=== PATIENT | male | born 1965 | race Caucasian/White ===

== ENCOUNTER 2021-12-17 05:30 | Outpatient (RCR) | payer BC ==
[~2021-12-17] VITALS: Ht 167.6 cm; Wt 99.8 kg
[~2021-12-17 05:30] MED LIST: ATOR20TA66 PO; BUME0.5T5 PO; DAPA10TA PO; INSU100I10 SQ; INSU100I23 SQ; PREG50CA65 PO; RAMI5CAP65 PO
== END 2021-12-17 08:48 | disposition home or self-care (01) ==
LOC: PREOP 05:30
PROVIDERS: ATTEND Surgery
DX: Z01.812 Encounter for preprocedural laboratory examination (principal); Z12.11 Encounter for screening for malignant neoplasm of colon; R11.2 Nausea with vomiting, unspecified; Z20.822 Contact with and (suspected) exposure to COVID-19
CPT/HCPCS: 87635

== ENCOUNTER 2021-12-21 06:58 | Day surgery (SDC) | payer BC ==
[~2021-12-21] VITALS: Ht 167.6 cm; Wt 99.8 kg
[2021-12-21] MEDS ORDERED: LACTATED RINGERS 1,000 ML IV STA (07:03)
[2021-12-21] MEDS ORDERED: HURRICAINE EXT TUBE (BENZOCAINE) XX PRN (07:15)
[2021-12-21 07:32] VITALS: BP 136/66
[2021-12-21] MEDS ORDERED: PROPOFOL INJECTION 50 ML IV ONE (07:47)
[2021-12-21] MEDS ORDERED: MIDAZOLAM 2 MG/2 ML (VERSED) VIAL ONE (07:47)
[2021-12-21] MEDS ORDERED: PHENYLEPHRINE 100 MCG/ML 10 ML (ANESTHESIA) SYR ONE (08:58)
[2021-12-21 09:15] VITALS: BP 106/56
[2021-12-21 09:19] VITALS: BP 106/56
--- NOTE | 2021-12-21 09:19 | Progress Note-Post Operative ---
Post-Operative Progess Note Surgeon (s)/Newspaper Carrier (s) Surgeon AMANDA GANT DO Newspaper Carrier: Ana Maria Aceves, MSIII Pre-Operative Diagnosis N/V, Abd pain, Screening colon Post-Operative Diagnosis Duodenitis Gastritis Esophagitis Polyps Diverticula Int hemorrhoids Procedure & Operative Findings Date of Procedure 12/21/21 Procedure Performed/Findings EGD with bx Colon with snare PROCEDURE NOTE: After informed consent was obtained, the patient was brought to the endoscopy suite, placed in bed in left lateral decubitus position. He was administered IV sedation by the BUFFER OPERATOR who then monitored vitals the entire time, heart rate, blood pressure and pulse ox and the scope was inserted down the mouth through the esophagus into the stomach. On the way down, noted some mild esophagitis, took a picture, pushed into the stomach, pushed past the antrum into the duodenum. Duodenum showed some moderate inflammation and maybe even an ulcer; did a biopsy in here (only 1st and 2nd portion). Pulled back and did a biopsy of the antrum, then retroflexed the scope; did not see a hiatal hernia, took a picture. Then pulled the scope into the GE junction and did a biopsy here. Pushed the scope back into the stomach and suctioned all the air out of the stomach. At this point pulled the scope up the esophagus and out the mouth. Switched camera, switched gloves, went down below and started the colonoscopy. Pushed all the way in to about 150 cm to get all the way to cecum. Once here I took a picture of the appendiceal orifice and noted the ileocecal valve. I also found a polyp which I removed with snare polypectomy. I then slowly withdrew the scope, insufflating to look circumferentially at the wolfe starting in the cecum and slowly up the ascending colon to the hepatic flexure. Then down the transverse colon where I found another small polyp; which was also removed with snare polypectomy. Down to the splenic flexure and into the descending colon, where I again found another polyp and removed it with the snare. Continued down into the sigmoid and I took a picture of some diverticula and found a larger polyp. I was able to remove this with a snare also; however, it would not come through the channel and I had to suction it to the scope and completely remove the scope to get the polyp. I pushed the scope back in and then finally pulled back into the rectum. I retroflexed in the rectal vault, saw some minimal internal hemorrhoids and another small polyp; took a picture of this. Removed the polyp with another snare and finally pulled the scope completely out. The patient tolerated the procedure and he recovered in the endoscopy suite. Anesthesia Type IV sedation by BUFFER OPERATOR Estimated Blood Loss Estimated blood loss (mL): scant Specimens/Packing Specimens Removed duodenal bx antral bx GE jxn bx Cecal polyp transverse colon polyp desc colon polyp sigmoid polyp rectal polyp AMANDA GANT DO Dec 21, 2021 09:19
--- NOTE | 2021-12-21 09:21 | Endoscopy Discharge Instruct ---
Endo Procedure/Findings Findings 1.: Gastritis, Other Findings (Duodenitis and Esophagitis) 2.: Polyp 3.: Diverticulosis 4.: Internal Hemorrhoids Discharge Instructions - Activity: You might feel a little sleepy until tomorrow. This is due to the medicine you received to relax you. Until tomorrow, you should: NOT drive a car, operate machinery or power tools. NOT drink any alcoholic beverages. NOT make any important decisions or sign importortant papers. Do not return to work until tomorrow, unless otherwise instructed. Resume previous activities tomorrow. Diet: Start by taking liquids. If you tolerate liquids, advance to solid food. 1.: EGD in 1 year 2.: Colonscopy in 3 years Notify Physician - If you experience excessive bleeding, unusual abdominal pain, fever, or chest pain, contact your doctor immediately. AMANDA GANT DO Dec 21, 2021 09:21
[2021-12-21 09:44] VITALS: BP 120/68
--- NOTE | 2021-12-21 12:31 | Anesthesia-General Post-Op ---
MAC Patient Condition Mental Status/LOC: Same as Preop Cardiovascular: Satisfactory Nausea/Vomiting: Absent Respiratory: Satisfactory Pain: Controlled Complications: Absent Post Op Complications Complications None Follow Up Care/Instructions Patient Instructions None needed. Anesthesiology Discharge Order Discharge Order Patient is doing well, no complaints, stable vital signs, no apparent adverse anesthesia problems. No complications reported per nursing. FROY SWAIN CRNA Dec 21, 2021 12:31
== END 2021-12-21 09:47 | disposition home or self-care (01) ==
LOC: ENDO 06:58
PROVIDERS: ATTEND Surgery
DX: Z12.11 Encounter for screening for malignant neoplasm of colon (principal); D12.0 Benign neoplasm of cecum; D12.3 Benign neoplasm of transverse colon; D12.4 Benign neoplasm of descending colon; D12.5 Benign neoplasm of sigmoid colon; K29.80 Duodenitis without bleeding; K29.70 Gastritis, unspecified, without bleeding; K20.90 Esophagitis, unspecified without bleeding; K63.5 Polyp of colon; K57.30 Diverticulosis of large intestine without perforation or abscess without bleeding; K64.8 Other hemorrhoids; E11.40 Type 2 diabetes mellitus with diabetic neuropathy, unspecified; I11.0 Hypertensive heart disease with heart failure; E11.22 Type 2 diabetes mellitus with diabetic chronic kidney disease; I50.9 Heart failure, unspecified; N18.2 Chronic kidney disease, stage 2 (mild); Z79.4 Long term (current) use of insulin; Z79.899 Other long term (current) drug therapy
CPT/HCPCS: 82947

== ENCOUNTER 2023-02-02 16:46 | Observation (INO) | payer BC ==
[~2023-02-02] VITALS: Ht 167.7 cm; Wt 101.8 kg
[2023-02-02] MEDS ORDERED: ASPIRIN 81 MG CHEW (CHILDREN'S ASA) PO ONE (17:00)
[2023-02-02 17:08] LABS: ALBUMIN 4.3 GM/DL (3.2-4.5)
[2023-02-02 17:09] LABS: POTASSIUM 4.4 MMOL/L (3.6-5.0)
[2023-02-02 17:10] LABS: BASOPHILS # (AUTO) 0.1 10^3/uL (0.0-0.1); BASOPHILS % (AUTO) 1 % (0-10); CALCIUM 9.2 MG/DL (8.5-10.1); EOSINOPHILS # (AUTO) 0.4 10^3/uL (0.0-0.3); EOSINOPHILS % (AUTO) 5 % (0-10); HEMATOCRIT 46 % (40-54); HEMOGLOBIN 15.3 g/dL (13.3-17.7); LYMPHOCYTES # (AUTO) 2.1 10^3/uL (1.0-4.0); LYMPHOCYTES % (AUTO) 28 % (12-44); MEAN CORPUSCULAR HEMOGLOBIN 29 pg (25-34); MEAN CORPUSCULAR HGB CONC 34 g/dL (32-36); MEAN CORPUSCULAR VOLUME 86 fL (80-99); MONOCYTES # (AUTO) 0.6 10^3/uL (0.0-1.0); MONOCYTES % (AUTO) 8 % (0-12); NEUTROPHILS # (AUTO) 4.2 10^3/uL (1.8-7.8); NEUTROPHILS % (AUTO) 57 % (42-75); PLATELET COUNT 144 10^3/uL (130-400); WHITE BLOOD COUNT 7.4 10^3/uL (4.3-11.0)
[2023-02-02 17:13] LABS: BILIRUBIN,TOTAL 1.2 MG/DL (0.1-1.0)
--- NOTE | 2023-02-02 17:13 | ED Chest Pain ---
General Chief Complaint: Chest Pain Stated Complaint: CHEST PAIN Nursing Triage Note: PT AMB TO RM 4 WITH COMPLAINT OF CP, SOA, AND UPPER BACK PAIN. STATES STARTED TUESDAY. STATES HES BEEN TOLD HE HAS FLUID IN HIS LUNGS. Source: patient Exam Limitations: no limitations History of Present Illness Date Seen by Provider: Feb 02, 2023 Time Seen by Provider: 17:01 Initial Comments 58-year-old male comes in for chest pain. He has been short of breath for the last several months. He states his doctor thinks he has diastolic heart failure. He has had significant orthopnea as well as dyspnea on exertion. For last 2 or 3 days he has had a constant pressure in his left anterior chest into his epigastric region. He has had pain like this in the past, most recently a couple months ago but it seems to be a relatively new problem for him. He has no known coronary artery disease and no history of ACS. No history of pulmonary pathology. He is diabetic and has high blood pressure and high cholesterol. He states his father had significant heart problems at a young age. He denies any fevers chills. He has had a nonproductive cough. All other systems reviewed and negative except documented per HPI. Voice recognition software was used to help create this chart Allergies and Home Medications Allergies Coded Allergies: No Known Drug Allergies (Unverified , 12/14/21) Patient Home Medication List Home Medication List Reviewed: Yes Atorvastatin Calcium (Atorvastatin Calcium) 20 Mg Tablet, 20 MG PO HS, (Reported) Entered as Reported by: ESTHER MAK on 12/14/211412 Last Action: Reviewed Bumetanide (Bumetanide) 0.5 Mg Tablet, 0.5 MG PO HS, (Reported) Entered as Reported by: ESTHER MAK on 12/14/211412 Last Action: Reviewed Dapagliflozin Propanediol (Farxiga) 10 Mg Tablet, 10 MG PO DAILY, (Reported) Entered as Reported by: ESTHER MAK on 12/14/211412 Last Action: Reviewed Insulin Glargine,Hum.rec.anlog (Lantus Solostar) 100 Unit/1 Ml Insuln.pen, 30 UNIT SQ DAILY, (Reported) Entered as Reported by: ESTHER MAK on 12/14/211412 Last Action: Reviewed Pregabalin (Pregabalin) 50 Mg Capsule, 50 MG PO BID, (Reported) Entered as Reported by: ESTHER MAK on 12/14/211412 Last Action: Reviewed Ramipril (Ramipril) 5 Mg Capsule, 5 MG PO DAILY, (Reported) Entered as Reported by: ESTHER MAK on 12/14/211412 Last Action: Reviewed Discontinued Medications Insulin Lispro (Humalog Kwikpen) 100 Unit/1 Ml Insuln.pen, 8 UNIT SQ TID, (Reported) Discontinued Reason: No Longer Taking Entered as Reported by: ESTHER MAK on 12/14/211412 Last Action: Discontinued Review of Systems Review of Systems Constitutional: see HPI Past Hwhxrvu-Kbeutv-Zkcvtx Hx Patient Social History Tobacco Use?: No Use of E-Cig and/or Vaping dev: No Substance use?: No Alcohol Use?: No Pt feels they are or have been: No Immunizations Up To Date First/Initial COVID19 Vaccinat: 01/10/2021 Second COVID19 Vaccination Rosas: 02/10/2021 Third COVID19 Vaccination Date: 09/20/2021 Seasonal Allergies Seasonal Allergies: No Past Medical History Surgeries: Yes (CYST REMOVED) Respiratory: No Cardiac: Yes (CHF) High Cholesterol Neurological: No Genitourinary: Yes (STAGE III KIDNEY DISEASE) Gastrointestinal: No (HEPATITIS A, N&V) Hepatitis Musculoskeletal: No Endocrine: Yes Diabetes, Insulin dep HEENT: No Cancer: No Psychosocial: No Integumentary: No Blood Disorders: No Family Medical History Reviewed Nursing Family Hx CAD Under 55 Years Old Physical Exam Vital Signs Vital Signs - First Documented 02/02/23 02/02/23 16:46 16:48 Temp 36.2 Pulse 67 Resp 17 B/P (MAP) 187/92 (123) Pulse Ox 94 O2 Delivery Room Air Capillary Refill : Less Than 3 Seconds Height, Weight, BMI Height: '" Weight: lbs. oz. kg; 36.00 BMI Method: General Appearance: No Apparent Distress, WD/WN HEENT: Normal ENT Inspection, Pharynx Normal Neck: Full Range of Motion, Normal Inspection, Non Tender, Supple Respiratory: Chest Non Tender, Lungs Clear, Normal Breath Sounds, No Accessory Muscle Use, No Respiratory Distress Cardiovascular: Regular Rate, Rhythm, No Murmur Gastrointestinal: Normal Bowel Sounds, Non Tender, Soft Neurologic/Psychiatric: Alert, Oriented x3 Skin: Normal Color, Warm/Dry Progress/Results/Core Measures Results/Orders Lab Results Laboratory Tests Test 02/02/23 17:01 Range/Units White Blood Count 7.4 4.3-11.0 10^3/uL Red Blood Count 5.28 4.30-5.52 10^6/uL Hemoglobin 15.3 13.3-17.7 g/dL Hematocrit 46 40-54 % Mean Corpuscular Volume 86 80-99 fL Mean Corpuscular Hemoglobin 29 25-34 pg Mean Corpuscular Hemoglobin Concent 34 32-36 g/dL Red Cell Distribution Width 12.9 10.0-14.5 % Platelet Count 144 130-400 10^3/uL Mean Platelet Volume 13.0 H 9.0-12.2 fL Immature Granulocyte % (Auto) 0 % Neutrophils (%) (Auto) 57 42-75 % Lymphocytes (%) (Auto) 28 12-44 % Monocytes (%) (Auto) 8 0-12 % Eosinophils (%) (Auto) 5 0-10 % Basophils (%) (Auto) 1 0-10 % Neutrophils # (Auto) 4.2 1.8-7.8 10^3/uL Lymphocytes # (Auto) 2.1 1.0-4.0 10^3/uL Monocytes # (Auto) 0.6 0.0-1.0 10^3/uL Eosinophils # (Auto) 0.4 H 0.0-0.3 10^3/uL Basophils # (Auto) 0.1 0.0-0.1 10^3/uL Immature Granulocyte # (Auto) 0.0 0.0-0.1 10^3/uL Sodium Level 138 135-145 MMOL/L Potassium Level 4.4 3.6-5.0 MMOL/L Chloride Level 101 98-107 MMOL/L Carbon Dioxide Level 27 21-32 MMOL/L Anion Gap 10 5-14 MMOL/L Blood Urea Nitrogen 39 H 7-18 MG/DL Creatinine 2.71 H 0.60-1.30 MG/DL Estimat Glomerular Filtration Rate 26 BUN/Creatinine Ratio 14 Glucose Level 394 H 70-105 MG/DL Calcium Level 9.2 8.5-10.1 MG/DL Corrected Calcium 9.0 8.5-10.1 MG/DL Total Bilirubin 1.2 H 0.1-1.0 MG/DL Aspartate Amino Transf (AST/SGOT) 15 5-34 U/L Alanine Aminotransferase (ALT/SGPT) 17 0-55 U/L Alkaline Phosphatase 157 H 40-136 U/L Troponin I < 0.028 <0.028 NG/ML Total Protein 7.5 6.4-8.2 GM/DL Albumin 4.3 3.2-4.5 GM/DL My Orders Orders - SIDDHARTHA PEARCE DO Ekg Tracing (02/02/23 16:54) Cbc With Automated Diff (02/02/23 16:59) Chest 1 View, Ap/Pa Only (02/02/23 16:59) Comprehensive Metabolic Panel (02/02/23 16:59) O2 (02/02/23 16:59) Monitor-Rhythm Ecg Trace Only (02/02/23 16:59) Ed Iv/Invasive Line Start (02/02/23 16:59) Troponin I Rich (02/02/23 16:59) Aspirin Chewable Tablet (Baby Aspirin Ch (02/02/23 17:00) Covid 19 Inhouse Test (02/02/23 17:13) Influenza A And B By Pcr (02/02/23 17:13) Ed Admission (Communication) (02/02/23 17:41) Medications Given in ED Current Medications Medications Dose Ordered Sig/Sammie Route Start Time Stop Time Status Last Admin Dose Admin Aspirin 324 mg ONCE ONCE PO 02/02/23 17:00 02/02/23 17:01 DC 02/02/23 17:21 324 MG Vital Signs/I&O 02/02/23 02/02/23 16:46 16:48 Temp 36.2 Pulse 67 Resp 17 B/P (MAP) 187/92 (123) Pulse Ox 94 O2 Delivery Room Air Room Air Blood Pressure Mean: 123 Comment EKG shows sinus rhythm with a rate of 55 bpm. Normal axis. Prolonged QRS but normal QTc otherwise normal intervals. No ectopy. No ST or T wave abnormalities. Departure Communication (Admissions) Patient is hemodynamically stable and moderately hypertensive. This improves with rest alone. Symptoms are concerning for possible angina. No evidence for ACS given negative troponin and nonischemic EKG. Chest x-ray is negative for any acute pulmonary pathology. PE remains in the differential diagnosis however I think it is low risk at this time. His creatinine is significantly elevated given his CKD 3 with a GFR of 26 I do not think that we should give him IV contrast dye at this time. I spoke with Dr. Chau at 1740 and she accepts admission. She request a call Dr. Tong. I called and left a voicemail, awaiting callback at this time. Patient is comfortable for cardiac rule out admission. His heart score is 4-5 1750: Spoke to Dr Willson. Recommends DVT prophylaxis, toprol 25mg PO daily . I have written bridging orders. Impression Primary Impression: Chest pain Qualified Codes: R07.9 - Chest pain, unspecified Disposition: ADMITTED INPATIENT Condition: Stable Admissions Decision to Admit Reason: Admit from ER (General) Departure-Patient Inst. Referrals: ANTON TALLEY MD (PCP) Primary Care Physician SIDDHARTHA PEARCE DO Feb 02, 2023 17:13
[2023-02-02 17:14] LABS: CREATININE SERUM 2.71 MG/DL (0.60-1.30)
--- NOTE | 2023-02-02 17:21 | Diagnostic Imaging Report ---
INDICATION: Chest pain. EXAMINATION: Portable chest, 5:00 p.m. FINDINGS: Heart size is normal. There is a suboptimal inspiration. There are no infiltrates, effusions, or pneumothoraces. IMPRESSION: Suboptimal inspiration. No acute abnormality seen. Dictated by: Dictated on workstation # [id number]
[2023-02-02 17:35] LABS: TOTAL PROTEIN 7.5 GM/DL (6.4-8.2)
[2023-02-02] MEDS ORDERED: PATIENT MAY USE OWN MEDS, ALL PO SCH (19:30)
[2023-02-02] MEDS ORDERED: ONDANSETRON 4 MG/2 ML (SDV) Z0FRAN IVP PRN (19:30)
[2023-02-02] MEDS ORDERED: morphine INJ 4 MG/ML 1 ML (VIAL/SYRINGE) IV PRN (19:30)
[2023-02-02] MEDS ORDERED: NITROGLYCERIN 0.4 MG SL TABS BTL 25'S SL PRN (19:30)
[2023-02-02 20:00] VITALS: BP 150/75
[2023-02-02] MEDS: inSUlin ASPART (NovoLOG) 1 UNIT/0.01 ML (CHARGE PER UNIT) SC SCH (23:10)
[2023-02-02] MEDS: PREGABALIN 50 MG (LYRICA) CAP PO SCH (23:22)
[2023-02-03] VITALS (7 sets, daily range): BP systolic 123–163; BP diastolic 58–92
[2023-02-03 05:16] LABS: HEMATOCRIT 39 % (40-54); HEMOGLOBIN 12.9 g/dL (13.3-17.7); MEAN CORPUSCULAR HEMOGLOBIN 29 pg (25-34); MEAN CORPUSCULAR HGB CONC 33 g/dL (32-36); MEAN CORPUSCULAR VOLUME 85 fL (80-99); PLATELET COUNT 130 10^3/uL (130-400); WHITE BLOOD COUNT 7.9 10^3/uL (4.3-11.0)
[2023-02-03 05:26] LABS: CHLORIDE 107 MMOL/L (98-107); POTASSIUM 4.2 MMOL/L (3.6-5.0)
[2023-02-03 05:27] LABS: SODIUM 140 MMOL/L (135-145)
[2023-02-03 05:28] LABS: CALCIUM 8.3 MG/DL (8.5-10.1); GLUCOSE 143 MG/DL (70-105)
[2023-02-03 05:30] LABS: CARBON DIOXIDE 23 MMOL/L (21-32)
[2023-02-03 05:32] LABS: CREATININE SERUM 2.44 MG/DL (0.60-1.30); GFR ESTIMATED 30
[2023-02-03 05:33] LABS: BUN/CREATININE RATIO 15
[2023-02-03] MEDS: inSUlin ASPART (NovoLOG) 1 UNIT/0.01 ML (CHARGE PER UNIT) SC SCH ×4 (05:43→21:27)
--- NOTE | 2023-02-03 08:03 | Consultation-Cardiology ---
HPI-Cardiology Cardiology Consultation: Date of Consultation 02/03/23 Time Seen by a Provider: 08:20 Date of Admission 02-02-23 Attending Physician Carlos Otto MD Admitting Physician Admitting Physician: Emely Galvez MD Attending Physician: Emely Galvez MD Consulting Physician Shante Willson MD HPI: Chief Complaint: Chest pain Mr. Moncada is a 58 yr old male admitted to 511 from the ED with c/o CP. He reports he developed chest tightness aprox 3 days ago which he reports was constant, radiating into his left shoulder blade. He reports nothing made it better or worse. He reports he had some mild facial numbness when the chest tightness started that lasted for a hours and resolved on its own. He denies any vision changes or difficulty with speech or swallowing. No report of any weakness in his extremities. He reports he did have a slight GERARD at the time. He reports the chest tightness began to ease up by the end of day 2, but on day 3 the chest tightness returned and has lasted since then. He reports nothing makes it better or worse. He does report it is less intense than yesterday. He reports chronic YEE which he feels may be somewhat worse. He denies any fever or chills. He reports intermittent LE swelling and abd swelling for which his PCP started him on Lasix which does help. He reports he has a chronic dry cough which has been present for years. He reports his PCP is Dr. Carlos Otto. Review of Systems-Cardiology Review of Systems Constitutional: No chills, No fever, No malaise Eyes: No vision change Ears/Nose/Throat: No epistaxis, No recent hearing loss Respiratory: As described under HPI Cardiovascular: As described under HPI Gastrointestinal: No constipation, No diarrhea; nausea; No vomiting Genitourinary: No dysuria, No hematuria Musculoskeletal: no symptoms reported Skin: No rash on exposed areas, No ulcerations on exposed areas Psychiatric/Neurological: No anxiety, No depression, No seizure, No focal weakness, No syncope Hematologic: No bleeding abnormalities MCZ-Yxqozg-Kxbkra Hx Patient Social History Smoking Status: Never a Smoker 2nd Hand Smoke Exposure: No Have you traveled recently?: No Alcohol Use?: No Substance type: Caffeine Pt feels they are or have been: No Past Medical History PMH As described under Assessment. Family Medical History Family Medical History: He reports his Father had CAD. He reports his mother had CAD. Allergies and Home Medications Allergies Coded Allergies: No Known Drug Allergies (Unverified , 12/14/21) Patient Home Medication List Atorvastatin Calcium (Atorvastatin Calcium) 20 Mg Tablet, 20 MG PO HS, (Reported) Entered as Reported by: ESTHER MAK on 12/14/211412 Last Action: Reviewed Bumetanide (Bumetanide) 0.5 Mg Tablet, 0.5 MG PO HS, (Reported) Entered as Reported by: ESTHER MAK on 12/14/211412 Last Action: Reviewed Dapagliflozin Propanediol (Farxiga) 10 Mg Tablet, 10 MG PO DAILY, (Reported) Entered as Reported by: ESTHER MAK on 12/14/211412 Last Action: Reviewed Insulin Glargine,Hum.rec.anlog (Lantus Solostar) 100 Unit/1 Ml Insuln.pen, 30 UNIT SQ DAILY, (Reported) Entered as Reported by: ESTHER MAK on 12/14/211412 Last Action: Reviewed Pregabalin (Pregabalin) 50 Mg Capsule, 50 MG PO BID, (Reported) Entered as Reported by: ESTHER MAK on 12/14/211412 Last Action: Reviewed Discontinued Medications Insulin Lispro (Humalog Kwikpen) 100 Unit/1 Ml Insuln.pen, 8 UNIT SQ TID, (Reported) Discontinued Reason: No Longer Taking Entered as Reported by: ESTHER MAK on 12/14/211412 Last Action: Discontinued Ramipril (Ramipril) 5 Mg Capsule, 5 MG PO DAILY, (Reported) Entered as Reported by: ESTHER MAK on 12/14/211412 Last Action: Reviewed Physical Exam-Cardiology Physical Exam Vital Signs/I&O Capillary Refill : Less Than 3 Seconds Constitutional: AAO x 3, well-developed, well-nourished HEENT: PERRL, hearing is well preserved, oral hygience is good Neck: No carotid bruit; carotid pulses are 2 + bilaterally Respiratory: No accessory muscle use, No respiratory distress; chest expansion is symmetric, chest is bilaterally symmetric, lungs clear to auscultation Cardiovascular: regular rate-rhythm; No JVD; S1 and S2 Gastrointestinal: No tender; soft, round, audible bowel sounds Extremities: other (mild bilat LE swelling) Neurologic/Psychiatric: grossly intact (moves all extremities) Skin: No rash on exposed areas, No ulcerations on exposed areas Data Review Labs Radiology NAME: MATHEW MONCADA JR [facility] REC#: [id number] PT STATUS: REG ER : 1965 PHYSICIAN: SIDDHARTHA PEARCE DO ADMIT DATE: 02/02/23/ER Signed Date of Exam:02/02/23 CHEST 1 VIEW, AP/PA ONLY INDICATION: Chest pain. EXAMINATION: Portable chest, 5:00 p.m. FINDINGS: Heart size is normal. There is a suboptimal inspiration. There are no infiltrates, effusions, or pneumothoraces. IMPRESSION: Suboptimal inspiration. No acute abnormality seen. 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 Galvez regarding plan of care Clinical Quality Measures AMI/AHF: ASA po Prior to arrival: ALLISON Trimble Feb 03, 2023 08:03
--- NOTE | 2023-02-03 08:40 | History & Physical-Hospitalist ---
History of Present Illness HPI/Chief Complaint Patient is a 58-year-old with past medical history of insulin- dependent diabetes chronic kidney disease hypertension and hyperlipidemia who presented to the emergency department due to chest pain. He states his chest pain has been going on for couple days and has been exertional in nature. He then developed a tightness in his shoulder prompting him to seek evaluation in the ER. He does state this is happened in the past and he has had a negative work-up though he is unable to tell me where or when and states he has a bad memory. He did have an echo done and reports this was done at a clinic . I did confirm with his primary care physician that this was done at a facility called [facility] that primarily does ultrasounds but will do echoes if needed. His primary care physician informing his EF was 75% at that time and he had no diastolic dysfunction. Despite this he has had lower extremity edema going on for the past couple of years. He has been quite noncompliant with his medications over the past couple of months because he states his mom had a heart attack and he has been away taking care of her. He has not taken his insulin at all for the past month. On arrival his troponin was negative but his blood sugar was found to be 394. He was admitted for chest pain rule out given his significant risk factors. He denies any chest pain this morning. Source: patient Date Seen 02/03/23 Time Seen by a Provider: 08:30 Attending Physician Carlos Otto MD PCP Admitting Physician: Namrata Galvez MD Attending Physician: Namrata Galvez MD Referring Physician Date of Admission Feb 02, 2023 at 18:31 Home Medications & Allergies Home Medications Reviewed patient Home Medication Reconciliation performed by pharmacy medication reconciliations extracorporeal technician and/or nursing. Patients Allergies have been reviewed. Allergies Allergies Coded Allergies No Known Drug Allergies (Unverified12/14/21) Past Vydwlrs-Vmxgvs-Gdposo Hx Patient Social History Tobacco Use?: No Smoking Status: Never a Smoker Smokeless Tobacco Frequency: Never a User Use of E-Cig and/or Vaping dev: No Substance use?: No Substance type: Caffeine Substance frequency: Couple times a week Alcohol Use?: No Pt feels they are or have been: No Immunizations Up To Date First/Initial COVID19 Vaccinat: 01/10/2021 Second COVID19 Vaccination Rosas: 02/10/2021 Seasonal Allergies Seasonal Allergies: No Current Status Advance Directives: No Communicates: Verbally Primary Language: Argentine Preferred Spoken Language: Argentine Is interpretation needed?: No Implanted or Applied Medical D: None Past Medical History High Cholesterol Renal Failure Hepatitis Diabetes, Insulin dep Blood Disorders: No Family Medical History Heart Disease, CAD Over 55 Years Old Review of Systems Constitutional: see HPI Physical Exam Physical Exam Vital Signs Vital Signs - First Documented 02/02/23 02/02/23 16:46 16:48 Temp 36.2 Pulse 67 Resp 17 B/P (MAP) 187/92 (123) Pulse Ox 94 O2 Delivery Room Air Capillary Refill : Less Than 3 Seconds Height, Weight, BMI Height: '" Weight: lbs. oz. kg; 35.45 BMI Method: General Appearance: No Apparent Distress, WD/WN, Obese Respiratory: Lungs Clear, No Respiratory Distress Cardiovascular: No Murmur, Bradycardia Gastrointestinal: Normal Bowel Sounds, Non Tender, Soft Neurologic/Psychiatric: Alert, Oriented x3, Normal Mood/Affect Results Results/Procedures Labs Laboratory Tests 02/02/23 17:01 02/03/23 04:52 Patient resulted labs reviewed. Imaging: Reviewed Imaging Report Imaging [facility] [place] NAME: MATHEW POLANCO [facility] REC#: [id number] PT STATUS: REG ER : 1965 PHYSICIAN: SIDDHARTHA PEARCE DO ADMIT DATE: 02/02/23/ER Signed Date of Exam:02/02/23 CHEST 1 VIEW, AP/PA ONLY INDICATION: Chest pain. EXAMINATION: Portable chest, 5:00 p.m. FINDINGS: Heart size is normal. There is a suboptimal inspiration. There are no infiltrates, effusions, or pneumothoraces. IMPRESSION: Suboptimal inspiration. No acute abnormality seen. Dictated by: Dictated on workstation # [id number] Dict: 02/02/231718 Trans: 02/02/231738 [id number] Interpreted by: PILAR NAIDU MD Electronically signed by: PILAR NAIDU MD 02/02/239 Assessment/Plan Admission Diagnosis chest pain Admission Status: Observation Assessment and Plan Chest pain Multiple high risk factors involved (poorly controlled DM, family history, HLD, HTN) Cardiology consulted, appreciate recs Stress test today Echo ordered Trop neg x3 Telemetry ASA IDDMII Diabetic nephropathy- CKD stage 4 Diabetic neuropathy BS improved with insulin overnight Creatinine nearing baseline (2.1 at PCP's office) Trend Social work consulted, appreciate recs HTN HLD COntinue home meds Clinical Quality Measures AMI/AHF: ASA po Prior to arrival: No NAMRATA GALVEZ MD Feb 03, 2023 08:40
[2023-02-03] MEDS ORDERED: CATHETER FLUSH 10 ML SYR IVP PRN (11:15)
[2023-02-03] MEDS ORDERED: REGADENOSON 0.4 MG/5 ML SYR (LEXISCAN) IV ONE ×2 (12:33→12:45)
[2023-02-03] MEDS: PREGABALIN 50 MG (LYRICA) CAP PO SCH ×2 (15:03→21:27)
--- NOTE | 2023-02-03 16:25 | Diagnostic Imaging Report ---
PROCEDURE: US carotid duplex, bilateral. TECHNIQUE: Multiple real-time grayscale images were obtained over the carotid arteries in various projections, bilaterally. Additional spectral analysis and color Doppler duplex images were also obtained. INDICATION: Facial numbness. COMPARISON: None. FINDINGS: The bilateral common carotid arteries are mildly tortuous, but are otherwise normal in course and caliber. There is mild tortuosity to the left internal carotid artery as well. Minimal atherosclerotic disease of the carotid bulbs is present, but by NASCET criteria, there is no focal significant stenosis. Vertebral arteries show normal antegrade flow. IMPRESSION: 1. Minimal atherosclerotic disease. No focal significant stenosis. Parameters based on the consensus panel Marquez-Scale and Doppler ultrasound criteria published August 2003, Radiology, Volume 229. DOPPLER (peak systolic velocity M/S Right Left CCA 1..1 1.5 ICA Proximal 1.2 1.3 ICA Mid 1.2 1.3 ICA Distal 1.0 .82 RATIO 1.2 .91 ECA 1.7 .91 VERT .67 .98 Dictated by: Dictated on workstation # [id number]
--- NOTE | 2023-02-03 18:04 | STRESS TEST ---
DATE OF SERVICE: 02/03/2023 RESTING AND POST REGADENOSON TECHNETIUM-99M TETROFOSMIN SPECT CT IMAGING ORDERING PHYSICIAN: Shania Brito APRN PRIMARY PHYSICIAN: Dr. Otto. ATTENDING PHYSICIAN: Dr. Galvez. OTHER PHYSICIAN: Dr. Willson. CLINICAL DIAGNOSIS: Chest discomfort. Baseline images were carried out after injection of 10.87 mCi of technetium-99m tetrofosmin. This was followed by 0.4 mg regadenoson and 32.8 mCi of technetium-99m tetrofosmin for stress imaging. The electrocardiogram showed sinus rhythm with right bundle branch block. The electrocardiogram did not change significantly with the regadenoson infusion. The patient noted mild shortness of breath following regadenoson infusion, which resolved in a few minutes. Review of images at rest and following stress does not indicate any significant myocardial ischemia. There appears to be some degree of apical thinning both at rest and following regadenoson infusion. Gated images show normal global left ventricular systolic function with normal regional wall motion, including the left ventricular apex. The summed stress score is 3. The summed rest score is 2. The summed difference score is 1. This indicates that this is a low risk study. CONCLUSIONS: 1. Low-risk study, which he does not exhibit distinct evidence of myocardial ischemia or infarction. 2. Normal global left ventricular systolic function with a calculated ejection fraction of 69%. 3. Normal regional wall motion. Job ID: [id number] DocumentID: [id number] Dictated Date: 02/03/2023 17:29:36 Satellite Tv Installer Date: 02/03/2023 18:01:00 Dictated By: DALLAS WILLSON MD; OLIVER; FACP; FACC;
--- NOTE | 2023-02-03 18:32 | Consultation-Cardiology ---
HPI-Cardiology Cardiology Consultation: Date of Consultation 02/03/23 Time Seen by a Provider: 09:30 Date of Admission Attending Physician Carlos Otto MD Admitting Physician Admitting Physician: Emely Galvez MD Attending Physician: Emely Galvez MD Consulting Physician DALLAS GORE MD, MA, FACP, FACC, [facility] [place], CCDS Physician requesting consult: Dr Galvez Pt seen at 0930 and 1700 HPI: Chief Complaint: Chest pain Mr. Moncada is a 58 yr old male admitted to [facility] from the ED with c/o CP. He reports he developed chest tightness aprox 3 days ago which he reports was constant, radiating into his left shoulder blade. He reports nothing made it better or worse. He reports he had some mild facial numbness when the chest tightness started that lasted for a hours and resolved on its own. He denies any vision changes or difficulty with speech or swallowing. No report of any weakness in his extremities. He reports he did have a slight GERARD at the time. He reports the chest tightness began to ease up by the end of day 2, but on day 3 the chest tightness returned and has lasted since then. He reports nothing makes it better or worse. He does report it is less intense than yesterday. He reports chronic YEE which he feels may be somewhat worse. He denies any fever or chills. He reports intermittent LE swelling and abd swelling for which his PCP started him on Lasix which does help. He reports he has a chronic dry cough which has been present for years. He reports his PCP is Dr. Carlos Otto. Review of Systems-Cardiology Review of Systems Constitutional: No chills, No fever, No malaise Eyes: No vision change Ears/Nose/Throat: No epistaxis, No recent hearing loss Respiratory: As described under HPI Cardiovascular: As described under HPI Gastrointestinal: No constipation, No diarrhea; nausea; No vomiting Genitourinary: No dysuria, No hematuria Musculoskeletal: no symptoms reported Skin: No rash on exposed areas, No ulcerations on exposed areas Psychiatric/Neurological: No anxiety, No depression, No seizure, No focal weakness, No syncope Hematologic: No bleeding abnormalities JNF-[id number]-Kbtinl Hx Patient Social History Smoking Status: Never a Smoker 2nd Hand Smoke Exposure: No Have you traveled recently?: No Alcohol Use?: No Substance type: Caffeine Pt feels they are or have been: No Past Medical History PMH As described under Assessment. Family Medical History Family Medical History: He reports his Father had CAD. He reports his mother had CAD. Allergies and Home Medications Allergies Coded Allergies: No Known Drug Allergies (Unverified , 12/14/21) Patient Home Medication List Home Medication List Reviewed: Yes Atorvastatin Calcium (Atorvastatin Calcium) 20 Mg Tablet, 20 MG PO HS, (Reported) Entered as Reported by: ESTHER MAK on 12/14/211412 Last Action: Reviewed Bumetanide (Bumetanide) 0.5 Mg Tablet, 0.5 MG PO HS, (Reported) Entered as Reported by: ESTHER MAK on 12/14/211412 Last Action: Reviewed Dapagliflozin Propanediol (Farxiga) 10 Mg Tablet, 10 MG PO DAILY, (Reported) Entered as Reported by: ESTHER MAK on 12/14/211412 Last Action: Reviewed Insulin Glargine,Hum.rec.anlog (Lantus Solostar) 100 Unit/1 Ml Insuln.pen, 30 UNIT SQ DAILY, (Reported) Entered as Reported by: ESTHER MAK on 12/14/211412 Last Action: Reviewed Pregabalin (Pregabalin) 50 Mg Capsule, 50 MG PO BID, (Reported) Entered as Reported by: ESTHER MAK on 12/14/211412 Last Action: Reviewed Ramipril (Ramipril) 5 Mg Capsule, 5 MG PO DAILY, (Reported) Entered as Reported by: ESTHER MAK on 12/14/211412 Last Action: Reviewed Discontinued Medications Insulin Lispro (Humalog Kwikpen) 100 Unit/1 Ml Insuln.pen, 8 UNIT SQ TID, (Reported) Discontinued Reason: No Longer Taking Entered as Reported by: ESTHER MAK on 12/14/211412 Last Action: Discontinued Physical Exam-Cardiology Physical Exam Vital Signs/I&O 02/03/23 02/03/23 02/03/23 02/03/23 07:00 08:00 08:00 12:00 Temp 36.7 36.8 Pulse 56 61 61 Resp 26 28 B/P (MAP) 128/58 (81) 130/65 (86) Pulse Ox 96 98 96 O2 Delivery Room Air Nasal Cannula Room Air 02/03/23 02/03/23 02/03/23 12:36 15:18 17:00 Temp 36.5 Pulse 62 58 64 Resp 20 B/P (MAP) 163/92 (115) 159/73 (101) Pulse Ox 94 95 O2 Delivery Room Air 02/03/23 00:00 Intake Total 960 ml Balance 960 ml Capillary Refill : Less Than 3 Seconds Constitutional: AAO x 3, well-developed, well-nourished HEENT: PERRL, hearing is well preserved, oral hygience is good Neck: No carotid bruit; carotid pulses are 2 + bilaterally Respiratory: No accessory muscle use, No respiratory distress; chest expansion is symmetric, chest is bilaterally symmetric, lungs clear to auscultation Cardiovascular: regular rate-rhythm; No JVD; S1 and S2 Gastrointestinal: No tender; soft, round, audible bowel sounds Extremities: other (mild bilat LE swelling) Neurologic/Psychiatric: grossly intact (moves all extremities) Skin: No rash on exposed areas, No ulcerations on exposed areas Data Review Labs Laboratory Tests 02/02/23 21:38: Glucometer 237H 02/02/23 23:00: Troponin I < 0.028 02/03/23 04:52: Troponin I < 0.028, White Blood Count 7.9, Red Blood Count 4.52, Hemoglobin 12.9L, Hematocrit 39L, Mean Corpuscular Volume 85, Mean Corpuscular Hemoglobin 29, Mean Corpuscular Hemoglobin Concent 33, Red Cell Distribution Width 13.0, Platelet Count 130, Mean Platelet Volume 13.0H, Sodium Level 140, Potassium Level 4.2, Chloride Level 107, Carbon Dioxide Level 23, Anion Gap 10, Blood Urea Nitrogen 36H, Creatinine 2.44H, Estimat Glomerular Filtration Rate 30, BUN/Creatinine Ratio 15, Glucose Level 143H, Calcium Level 8.3L 02/03/23 10:31: Glucometer 163H 02/03/23 17:00: Glucometer 138H A/P-Cardiology Assessment/Admission Diagnosis Chest pain of undetermined etiology - no evidence of ACS - MPI of 02/03/23 w/o evidence of significant ischemia/infarction. SSS 3, SRS 2, SDS 1 (low risk MPI) YEE - undetermined etiology - Echo on 02/03/23: mild concentric LVH, LVEF 55-60% Episode of transient facial numbness - carotid u/s on 02/03/23:Minimal atherosclerotic disease. 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
[2023-02-04] VITALS: BP 136/68
[2023-02-04 04:00] VITALS: BP 153/73
[2023-02-04 04:51] LABS: HEMOGLOBIN 13.3 g/dL (13.3-17.7); MEAN PLATELET VOLUME 13.1 fL (9.0-12.2); WHITE BLOOD COUNT 7.2 10^3/uL (4.3-11.0)
[2023-02-04 05:11] LABS: CALCIUM 8.4 MG/DL (8.5-10.1); CREATININE SERUM 2.37 MG/DL (0.60-1.30); POTASSIUM 4.3 MMOL/L (3.6-5.0)
[2023-02-04] MEDS: inSUlin ASPART (NovoLOG) 1 UNIT/0.01 ML (CHARGE PER UNIT) SC SCH ×2 (06:06→11:23)
[2023-02-04 08:00] VITALS: BP 137/66
[2023-02-04] MEDS: PREGABALIN 50 MG (LYRICA) CAP PO SCH (08:14)
--- NOTE | 2023-02-04 09:28 | Discharge Summary ---
Diagnosis/Chief Complaint Date of Admission Feb 02, 2023 at 18:31 Date of Discharge Discharge Date: Feb 04, 2023 Admission Diagnosis chest pain Primary Care Carlos Otto MD Discharge Summary Discharge Physical Exam Allergies: Coded Allergies: No Known Drug Allergies (Unverified , 12/14/21) Vitals & I&Os Vital Signs Date Time Temp Pulse Resp B/P (MAP) Pulse Ox O2 Delivery O2 Flow Rate FiO2 02/04/23 11:39 36.3 63 16 152/66 (94) 95 Room Air General Appearance: No Apparent Distress, Chronically ill, Obese Cardiovascular: Regular Rate, Rhythm, No Murmur Gastrointestinal: Normal Bowel Sounds, Soft Neurologic/Psychiatric: Alert, Oriented x3 Hospital Course Patient was admitted to the hospital secondary to chest pain. He had serial negative troponins but a significant medical history and family history for coronary artery disease underwent stress test. His stress test was low risk and read as negative. He also had an echo done which showed preserved ejection fraction and no diastolic dysfunction. he was discharged home in stable and improved condition to follow-up with his primary care physician. I did call and speak to Dr. Carlos Otto regarding this. Labs (last 24 hrs) Patient resulted labs reviewed. Pending Labs Imaging: Reviewed Imaging Report Discussion & Recommendations Discharge Planning: >30 minutes discharge planning Discharge Home Medications: Active Scripts Active Reported Pregabalin 50 Mg Capsule 50 Mg PO BID Lantus Solostar (Insulin Glargine,Hum.rec.anlog) 100 Unit/1 Ml Insuln.pen 30 Unit SQ DAILY Farxiga (Dapagliflozin Propanediol) 10 Mg Tablet 10 Mg PO DAILY Bumetanide 0.5 Mg Tablet 0.5 Mg PO HS Atorvastatin Calcium 20 Mg Tablet 20 Mg PO HS Instructions to patient/family Please see electronic discharge instructions given to patient. Clinical Quality Measures AMI/AHF: ASA po Prior to arrival: NAMRATA Pryor MD Feb 04, 2023 09:28
--- NOTE | 2023-02-04 09:29 | Discharge Inst-Simple/Standard ---
Discharge Inst-Standard Patient Instructions/Follow Up Plan of Care/Instructions/FU: Please continue to take your medications as written. Please follow up with your primary care doctor to follow up this hospital stay. Activity as Tolerated: Yes Discharge Diet: ADA Diet Return to The Hospital For: Chest pain, shortness of breath, fever, weakness, if you feel you are getting worse. NAMRATA LYNN MD Feb 04, 2023 09:29
[2023-02-04 11:39] VITALS: BP 152/66
--- NOTE | 2023-02-04 13:32 | Progress Note - Cardiology ---
Cardiology SOAP Progress Note Subjective: No cp or palp or syncope or shortness of breath No n/v/d No focal weakness No swelling of the legs Objective: I&O/Vital Signs 02/04/23 02/04/23 02/04/23 02/04/23 04:00 07:00 08:00 08:00 Temp 36.7 36.4 Pulse 72 63 69 Resp 16 B/P (MAP) 153/73 (99) 137/66 (89) Pulse Ox 96 96 97 O2 Delivery Room Air Nasal Cannula 02/04/23 11:39 Temp 36.3 Pulse 63 Resp 16 B/P (MAP) 152/66 (94) Pulse Ox 95 O2 Delivery Room Air 02/04/23 00:00 Intake Total 400 ml Balance 400 ml Constitutional: AAO x 3, well-developed, well-nourished Respiratory: No accessory muscle use, No respiratory distress; chest expansion is symmetric, chest is bilaterally symmetric, lungs clear to auscultation Cardiovascular: regular rate-rhythm; No JVD; S1 and S2 Gastrointestional: No tender; soft, round, audible bowel sounds Extremities: other (mild bilat LE swelling) Neurologic/Psychiatric: grossly intact (moves all extremities) Skin: No rash on exposed areas, No ulcerations on exposed areas Results/Procedures: Labs Laboratory Tests 02/03/23 17:00: Glucometer 138H 02/03/23 21:20: Glucometer 268H 02/04/23 04:30: White Blood Count 7.2, Red Blood Count 4.69, Hemoglobin 13.3, Hematocrit 41, Mean Corpuscular Volume 86, Mean Corpuscular Hemoglobin 28, Mean Corpuscular Hemoglobin Concent 33, Red Cell Distribution Width 12.9, Platelet Count 130, Mean Platelet Volume 13.1H, Percent Immature Platelet Fraction 11.0H, Sodium Level 140, Potassium Level 4.3, Chloride Level 105, Carbon Dioxide Level 25, Anion Gap 10, Blood Urea Nitrogen 33H, Creatinine 2.37H, Estimat Glomerular Filtration Rate 31, BUN/Creatinine Ratio 14, Glucose Level 244H, Calcium Level 8.4L 02/04/23 11:16: Glucometer 287H Laboratory Tests 02/02/23 17:01 02/03/23 04:52 02/04/23 04:30 A/P: Assessment: Chest pain of undetermined etiology - no evidence of ACS - MPI of 02/03/23 w/o evidence of significant ischemia/infarction. SSS 3, SRS 2, SDS 1 (low risk MPI) YEE - undetermined etiology - Echo on 02/03/23: mild concentric LVH, LVEF 55-60% Episode of transient facial numbness - carotid u/s on 02/03/23:Minimal atherosclerotic disease. 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
== END 2023-02-04 09:30 | disposition home or self-care, planned readmission (81) ==
LOC: EDUNIT# 16:46 → ER 16:49 → UNDOADMOB 18:31 → CSD 18:31 → UNDODISOB 02-04 09:30
PROVIDERS: ADMIT Family Medicine; ATTEND Family Medicine
DX: R07.9 Chest pain, unspecified (principal); R06.09 Other forms of dyspnea; R20.0 Anesthesia of skin; R05.3 Chronic cough; E78.5 Hyperlipidemia, unspecified; I12.9 Hypertensive chronic kidney disease with stage 1 through stage 4 chronic kidney disease, or unspecified chronic kidney disease; E11.22 Type 2 diabetes mellitus with diabetic chronic kidney disease; E11.40 Type 2 diabetes mellitus with diabetic neuropathy, unspecified; N18.4 Chronic kidney disease, stage 4 (severe); K21.9 Gastro-esophageal reflux disease without esophagitis; Z79.4 Long term (current) use of insulin; Z86.19 Personal history of other infectious and parasitic diseases
CPT/HCPCS: 71045; 78452; 80048 ×2; 80053; 82947 ×3; 84484 ×2; 85025; 85027 ×2; 87636; 93005 ×2; 93017; 93041; 93880; 96372 ×3; 99284; A9502; C8929; G0378; 36415; 93306